=== PATIENT | female | born 1955 | race Asian ===

== ENCOUNTER 2021-05-07 21:14 | Observation (INO) | payer SELFPAY ==
[~2021-05-07] VITALS: Ht 149.9 cm; Wt 61.0 kg
[~2021-05-07 21:14] MED LIST: GABA-826 PO; GLYB5TAB3 PO; HTN MED; METF10002 PO; METH-640 PO; METH4TAB2 PO; OXYC5TAB98 PO
[2021-05-07] MEDS ORDERED: ASPIRIN 81 MG TABLET CHEW ONE (22:17)
[2021-05-07 22:19] LABS: BASOPHILS % (AUTO) 1 % (0-1); EOSINOPHILS % (AUTO) 4 % (1-7); LYMPHOCYTES % (AUTO) 33 % (22-44); MEAN CORPUSCULAR HEMOGLOBIN 31.4 pg (27.0-34.8); MEAN PLATELET VOLUME 7.4 fL (7.4-10.4); MONOCYTES % (AUTO) 11 % (2-9); NEUTROPHILS % (AUTO) 51 % (42-75); PLATELET COUNT 242 x10^3/uL (130-400); RED BLOOD COUNT 4.12 x10^6/uL (3.82-5.3); RED CELL DISTRIBUTION WIDTH 13.5 % (9.6-15.2)
[2021-05-07 22:27] LABS: ALANINE AMINOTRANSFERASE 28 U/L (12-78); ALBUMIN 3.6 g/dL (3.4-5.0); ANION GAP 4 mmol/L (5-15); CALCIUM 8.5 mg/dL (8.5-10.1); CHLORIDE 106 mmol/L (98-107); CREATININE 0.85 mg/dL (0.55-1.02)
[2021-05-07] MEDS ORDERED: ASPIRIN 81 MG TABLET CHEW PO ONE (22:30)
[2021-05-07] MEDS ORDERED: SODIUM CHLORIDE FLUSH 10ML SYR IVF ONE (22:30)
[2021-05-07 22:31] LABS: ALKALINE PHOSPHATASE 62 U/L (45-117); BILIRUBIN,TOTAL 0.2 mg/dL (0.2-1.0); TOTAL PROTEIN 7.2 g/dL (6.4-8.2); TROPONIN I < 0.015 ng/mL (0.000-0.045)
[2021-05-07] MEDS ORDERED: ASPI-963 PO (23:20)
[2021-05-07] MEDS ORDERED: CANDESARTAN PO (23:20)
[2021-05-07] MEDS ORDERED: GABA-827 PO (23:20)
[2021-05-07] MEDS ORDERED: VITA1TAB67 PO (23:21)
[2021-05-07] MEDS ORDERED: CHOL10003 PO (23:21)
[2021-05-07] MEDS ORDERED: ZINC220T2 PO (23:21)
[2021-05-07] MEDS ORDERED: MAGN300C PO (23:21)
[2021-05-07] MEDS ORDERED: LATA7.5D EACHEYE (23:23)
[2021-05-07] MEDS ORDERED: TIMO5DRO37 EACHEYE (23:23)
--- NOTE | 2021-05-08 00:16 | NUR ---
HOSP AT BEDSIDE
[2021-05-08] MEDS ORDERED: ACETAMINOPHEN 325 MG TABLET PO PRN (00:30)
[2021-05-08] MEDS ORDERED: ONDANSETRON 2MG/ML, 2ML IVPush PRN (00:30)
[2021-05-08] MEDS ORDERED: ENOXAPARIN 40 MG/0.4 ML SQ SCH (00:30)
[2021-05-08] MEDS ORDERED: hydrALAzine 20 MG/ML, 1ML IVPush PRN (00:30)
[2021-05-08] MEDS ORDERED: morphine SULFATE 10 MG/ML, 1ML IVPush PRN (00:30)
--- NOTE | 2021-05-08 00:32 | NUR ---
REPORT GIVEN TO PRIYANKA VELASQUEZ
[2021-05-08 00:52] VITALS: BP 104/70
[2021-05-08 01:45] VITALS: BP 104/70
[2021-05-08 02:07] LABS: TROPONIN I < 0.015 ng/mL (0.000-0.045)
[2021-05-08] MEDS ORDERED: ASPIRIN 325 MG TABLET EC PO SCH (06:00)
[2021-05-08 06:36] LABS: TROPONIN I < 0.015 ng/mL (0.000-0.045)
[2021-05-08 07:00] VITALS: BP 122/78
[2021-05-08 07:13] LABS: MICROSCOPIC NOT IND
[2021-05-08] MEDS ORDERED: REGADENOSON 0.4 MG/5 ML SYRINGE ONE (09:30)
[2021-05-08 12:32] VITALS: BP 116/72
[2021-05-08] MEDS ORDERED: CAND4TAB3 PO (12:36)
[2021-05-08] MEDS ORDERED: NITR0.4T28 SL (15:24)
[2021-05-08 15:30] LABS: CHOL/HDL RATIO 5.6
[2021-05-08] MEDS ORDERED: NITROGLYCERIN 0.4 MG BOTTLE (25 TABS) SL PRN (15:30)
== END 2021-05-08 16:50 | disposition home or self-care (01) ==
LOC: ED 22:00 → INTOOBSV 22:53 → UNDOADMIN 22:53 → CCU 22:53 → 4EST 22:53 → UNDOADMIN 05-08 00:20 → 4EST 05-08 00:20 → 5SO 05-08 00:44
PROVIDERS: ADMIT Family Medicine; ATTEND Internal Medicine
DX: R07.89 Other chest pain (principal); R06.00 Dyspnea, unspecified; R53.83 Other fatigue; E11.9 Type 2 diabetes mellitus without complications; E78.5 Hyperlipidemia, unspecified; G89.29 Other chronic pain; M54.9 Dorsalgia, unspecified; K21.9 Gastro-esophageal reflux disease without esophagitis; Q62.0 Congenital hydronephrosis; Z86.73 Personal history of transient ischemic attack (TIA), and cerebral infarction without residual deficits; Z79.82 Long term (current) use of aspirin; Z79.899 Other long term (current) drug therapy
CPT/HCPCS: 36415; 71045; 76770; 78452; 80053; 80061; 81003; 83036; 83880; 84439; 84443; 84484; 85025; 85379; 93005; 93017; 96372; A9502; G0378; J1650; J2785